=== PATIENT | female | born 1975 | race Two or more races ===

== ENCOUNTER 2021-02-04 05:12 | Emergency (ER) | payer BC, MEDICAID ==
[~2021-02-04] VITALS: Ht 165.1 cm; Wt 97.5 kg
[~2021-02-04 05:12] MED LIST: ALBU0.5N2; CHLO1TAB57; [UNRECOGNIZED DRUG - CODE]
[2021-02-04 05:17] VITALS: BP 166/95
== END 2021-02-04 06:26 | disposition left against medical advice (07) ==
LOC: ER 05:12
DX: L02.415 Cutaneous abscess of right lower limb (principal); Z53.21 Procedure and treatment not carried out due to patient leaving prior to being seen by health care provider